=== PATIENT | male | born 1960 | race Caucasian/White ===

== ENCOUNTER 2020-04-08 18:23 | Emergency (ER) | payer SELFPAY ==
[~2020-04-08] VITALS: Ht 167.6 cm; Wt 73.0 kg
[2020-04-08] MEDS ORDERED: SODIUM CHLORIDE 0.9% 1,000 ML IV ONE (19:36)
[2020-04-08 20:26] LABS: EOSINOPHILS % 0.2 % (0.0-5.0); HEMATOCRIT. 38.7 % (42.0-52.0); HEMOGLOBIN. 13.4 g/dL (14.0-18.0); LYMPHOCYTES % 23.9 % (20.0-50.0); MEAN PLATELET VOLUME 8.3 fl (7.4-10.4); MONOCYTES % 11.3 % (2.0-8.0); NEUTROPHILS % 63.6 % (40.0-76.0); PLATELET 149 x1000/uL (130-400); RED CELL DISTRIBUTION WIDTH 16.5 % (11.6-14.6)
[2020-04-08 20:31] LABS: CHLORIDE 97 mEq/L (98-107)
[2020-04-08 20:44] LABS: ETHANOL BLOOD 404 mg/dL
[2020-04-08] MEDS ORDERED: POTASSIUM CHLORIDE 20MEQ TABLET SR PO SCH (22:15)
[2020-04-09 02:19] LABS: *BARBITURATES SCREEN URINE NEGATIVE (NEGATIVE); *BENZODIAZEPINES SCREEN URINE NEGATIVE (NEGATIVE); *COCAINE SCREEN URINE NEGATIVE (NEGATIVE); CANNABINOID URINE SCREEN NEGATIVE (NEGATIVE); METHADONE URINE SCREEN NEGATIVE (NEGATIVE); OPIATES URINE SCREEN NEGATIVE (NEGATIVE); PHENCYCLIDINE URINE SCREEN NEGATIVE (NEGATIVE)
[2020-04-09 02:20] LABS: *AMPHETAMINES SCREEN URINE NEGATIVE (NEGATIVE)
[2020-04-09 06:00] VITALS: BP 130/81
== END 2020-04-09 06:00 | disposition home or self-care (01) ==
LOC: ER 18:29
DX: F10.129 Alcohol abuse with intoxication, unspecified (principal); Y90.8 Blood alcohol level of 240 mg/100 ml or more; S01.01XA Laceration without foreign body of scalp, initial encounter; E87.6 Hypokalemia; R79.89 Other specified abnormal findings of blood chemistry; W01.198A Fall on same level from slipping, tripping and stumbling with subsequent striking against other object, initial encounter; Y93.89 Activity, other specified; Y92.480 Sidewalk as the place of occurrence of the external cause
CPT/HCPCS: 12002; 36415; 70450; 71045; 80053; 80305; 80320; 83880; 84484; 85025; 93005; 96360; 96361; 99285; J7030; G0480

== ENCOUNTER 2022-11-03 18:53 | Emergency (ER) | payer MEDICAID ==
[~2022-11-03] VITALS: Ht 162.6 cm; Wt 82.0 kg
[2022-11-03] MEDS ORDERED: BACITRACIN ZINC OINT UDPKT TOP ONE (19:15)
[2022-11-03] MEDS ORDERED: LIDOCAINE HCL/PF 1% 10 MG/ML 5ML VIAL INFIL ONE (19:15)
[2022-11-03] MEDS ORDERED: IBUP-2028 MT (20:15)
[2022-11-03 20:28] VITALS: BP 163/91
== END 2022-11-03 20:38 | disposition home or self-care (01) ==
LOC: ER 18:53
DX: S61.210A Laceration without foreign body of right index finger without damage to nail, initial encounter (principal); F10.21 Alcohol dependence, in remission; W26.0XXA Contact with knife, initial encounter; Y93.89 Activity, other specified; Y92.89 Other specified places as the place of occurrence of the external cause; Y99.8 Other external cause status
CPT/HCPCS: 12002; 73140; 99283; J3490; Z7610

== ENCOUNTER 2022-11-08 18:11 | Emergency (ER) | payer MEDICAID ==
[~2022-11-08] VITALS: Ht 182.9 cm; Wt 102.0 kg
[~2022-11-08 18:11] MED LIST: IBUP-2028 MT
[2022-11-08 18:24] VITALS: BP 181/91
== END 2022-11-08 20:30 | disposition left against medical advice (07) ==
LOC: ER 18:11
DX: Z48.02 Encounter for removal of sutures (principal); Z53.21 Procedure and treatment not carried out due to patient leaving prior to being seen by health care provider
CPT/HCPCS: 99281